=== PATIENT | male | born 1940 | race Caucasian/White ===

== ENCOUNTER 2018-12-17 13:17 | Inpatient (IN) ==
[2018-12-17] MEDS ORDERED: ROBINUL ONE (14:53)
[2018-12-17] MEDS ORDERED: XYLOCAINE-MPF 2% ONE (14:53)
[2018-12-17] MEDS ORDERED: DIPRIVAN 1% ONE (14:54)
[2018-12-17] MEDS ORDERED: LEVAQUIN 500 MG/D5W 500 MG/100 ML IVPB ONE (15:11)
[2018-12-17] MEDS ORDERED: ZOFRAN ONE (15:41)
--- NOTE | 2018-12-17 15:58 | HISTORY AND PHYSICAL ---
HISTORY OF PRESENT ILLNESS: This is a 78-year-old well known to me, a patient of mine for many years, presented with complaints of hematuria, and I think some subjective fever. Dr. Haynes did a cystoscopy. He has got what appears to be emphysematous pyelonephritis with irritation even in the bladder. We are admitting him now for IV antibiotics, and he will need a stent placed. He has a solitary kidney. His creatinine has bumped up. Renal function has deteriorated. PAST MEDICAL HISTORY: 1. Diabetes mellitus, type 2. 2. Long history of stones, staghorn calculus, and nonfunctional kidney for years. Finally had a nephrectomy, really an emergency nephrectomy with a lot of purulent pus and a difficult procedure done by Dr. Niall Haynes 2 years ago, and he has had some complications since that time. 3. He has a history of CVA. 4. History of gout. SURGICAL HISTORY: 1. Status post left nephrectomy. 2. Colon resection and colostomy and reversal in the past. FAMILY HISTORY: Coronary artery disease. SOCIAL HISTORY: Former smoker. No history of alcohol or illicit drugs. ALLERGIES: No known drug allergies. REVIEW OF SYSTEMS: He is getting weaker. His concerned he is not walking around very well. Both knees give him pain and his lower back and hips give him pain from arthritis.HEENT: No change in visual or hearing acuity. He denies any trauma to the head or neck. Neck: No neck pain or cervical adenopathy. Respiratory: No increased work of breathing or dyspnea. Cardiovascular: No chest pain or tachy palpitation. Gastrointestinal: Unremarkable Genitourinary: Unremarkable. Musculoskeletal: No new complaints. Neurologic: No new complaints. CURRENT MEDICATION: He is on allopurinol 300 mg a day, Proscar 5 mg a day, metformin 500 mg b.i.d., Flomax 0.4 mg b.i.d., tramadol 50 mg q.4 h. p.r.n. PHYSICAL EXAMINATION: GENERAL: He is awake and alert and oriented x3. VITAL SIGNS: Temperature 97.8 degrees, pulse 84, respirations 18, blood pressure 128/57, O2 saturation 97%. HEENT: Pupils are equal and round. LUNGS: Clear in all lung lund. CARDIOVASCULAR: Regular rhythm and rate without murmur or S3. ABDOMEN: Soft. SKIN: Warm and dry. MUSCULOSKELETAL: He has some costovertebral angle tenderness on the right side. ASSESSMENT AND PLAN: 1. Emphysematous pyelonephritis. I am going to cover him with broad spectrum antibiotics, including anaerobes, and he has no known drug allergies. I will put him on Zosyn, and I think I will use a combination of Zosyn and Zyvox and ask Dr. Fontenot to help. Consult Dr. Niall Haynes, who is planning on doing a retrograde and a stent placement if he can on the right. 2. Solitary kidney. Creatinine has bumped up, and so hopefully this will improve with some IV fluids and with opening up his right ureter. 3. Diabetes mellitus, type 2. Check pattern sugars. 4. 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 We will continue the allopurinol. 5. Osteoarthritis. Aware. We will check general lab and thyroid and B12 and folate, CBC. cc: Khang Paz MD
[2018-12-17] MEDS ORDERED: FENTANYL ONE (16:04)
[2018-12-17] MEDS ORDERED: DIPRIVAN 1% 500 MG/50 ML BOTTLE ONE (16:39)
[2018-12-17] MEDS: DILAUDID ONE ×2 (16:40→16:50)
[2018-12-17] MEDS ORDERED: HEPARIN ONE ×2 (17:04)
[2018-12-17] MEDS ORDERED: CARBOCAINE PF 2% ONE ×4 (17:04→18:15)
[2018-12-17] MEDS ORDERED: NS 500 ML ONE ×2 (17:05)
--- NOTE | 2018-12-17 17:25 | OPERATIVE NOTE ---
PROCEDURE DATE: 12/17/2018 SURGEON: Cliff Haynes MD. POSTOPERATIVE DIAGNOSIS: Gross hematuria, emphysematous right pyelonephritis and hemorrhagic cystitis with clots in the bladder. POSTOPERATIVE DIAGNOSIS: Gross hematuria, emphysematous right pyelonephritis and hemorrhagic cystitis with clots in the bladder. PROCEDURE PERFORMED: Cystoscopic exam with clot irrigation and attempt to place right double-J stent (greater than 1 hour). ANESTHESIA: General via laryngeal mask. FINDINGS: Cystoscopic exam: Urethra-greater than 21 Bangladeshi, without stricture. Prostate- coapting lateral lobes, elevated bladder neck, length approximately 5 cm. Bladder with multiple clots and pus mixed with blood. The culture that was obtained yesterday is still pending. There were grade 3 trabeculations but the bladder was very difficult to visualize secondary to bleeding. There was no distinct area. It was just a very diffuse ooze from all parts of the bladder. The right ureteral orifice was searched for but never visualized. The patient is status post left nephrectomy so the left UO was never searched for. Multiple attempts were made to place a double- J stent. A 5-Bangladeshi open ureteral catheter and ZIPwire were used to probe the areas. INDICATION FOR PROCEDURE: This 78-year-old male is status post left nephrectomy for xanthogranulomatous pyelonephritis. He had gross hematuria and increasing creatinine level. At cystoscopic exam yesterday, bladder biopsies were obtained and the right ureteral orifice was never really visualized. An attempt at a retrograde pyelogram was performed but the contrast kept coming back. A CT stone search revealed the surgically absent left kidney and right hydroureteronephrosis with gas in the right kidney and ureter consistent with emphysematous pyelonephritis. DESCRIPTION OF PROCEDURE: After informed consent was obtained from the patient and family and him receiving IV antibiotics, he was taken to the main OR cystoscopy room, placed in supine position. General anesthesia via laryngeal mask was achieved. He was then placed in the low lithotomy position and prepped and draped in the usual sterile fashion for cystoscopic exam. A 21-Bangladeshi cystoscope was passed the patient's urethra, prostate, and into the bladder. The clots were irrigated from the bladder. The bladder never completely cleared even with maximum irrigation running and the Jeanmarie tip syringe used to irrigate several liters of fluid. The urine cleared to kaveh in color and the right ureteral orifice was searched for but never found. A 5-Bangladeshi open- ended ureteral catheter with 0.035 ZIPwire was used to probe multiple areas that appeared to be the UO without success. After an hour, it was felt that any further attempts would be futile and he will be taken down to radiology so a right percutaneous nephrostomy tube could be placed. The bladder was left distended. A 22-Bangladeshi, 3-way Vega catheter was passed through the urethra, prostate and in the bladder. The urine was bloody. Continuous bladder irrigation was started and it became examination supervisor in color. 30 mL of sterile water were placed in the Vega's balloon and the Vega was placed on some traction. He tolerated the procedure well and was taken to the recovery room in stable condition. He will go from the recovery room down to Radiology for percutaneous nephrostomy tube placement. cc: MD Khang Page MD
[2018-12-17] MEDS ORDERED: NORCO-7.5 PO PRN (17:55)
[2018-12-17] MEDS ORDERED: ULTRAM PO PRN (17:55)
--- NOTE | 2018-12-17 19:13 | Diag Imaging Result Doc PS360 ---
EXAM: NEPHROSTOGRAM NEW ACCESS HISTORY: r hydronephrosis TECHNIQUE: Three separate films obtained COMPARISON: None. FINDINGS: First film shows contrast filling the right renal pelvis as well as the proximal and mid right ureter. Last two films show a right-sided ureteral stent. There is only a small amount of contrast remaining in the renal pelvis and ureter on the later films. Electronically signed by Antonio Mahmood 12/17/2018 7:10 PM
[2018-12-17 19:37] LABS: HEMATOCRIT 35.9 % (42.0-52.0); HEMOGLOBIN 11.6 g/dL (14.0-18.0); MCHC 32.3 g/dL (33-37); MCV 83.7 FL (81-99); MPV 9.6 FL (7.4-10.4); RBC 4.29 XMIL (4.7-6.1); RDW 14.8 % (11.5-14.5); WBC 14.61 X1000 (4.8-10.8)
[2018-12-17 19:41] LABS: INR 1.04; PROTIME 14.4 Seconds (11.0-16.0)
[2018-12-17 20:11] LABS: ALB/GLOB RATIO 1.2; ALBUMIN 3.5 g/dL (3.5-5.0); CALCIUM 8.5 mg/dL (8.8-10.2); CREATININE 2.5 mg/dL (0.7-1.2); TOTAL BILIRUBIN 0.23 mg/dL (0.20-1.00); TOTAL PROTEIN 6.4 g/dL (6.3-8.3)
[2018-12-17 20:12] LABS: MAGNESIUM 1.9 mg/dL (1.5-2.7)
[2018-12-17] MEDS: NS 1,000 ML IV SCH (20:38)
[2018-12-17] MEDS: ZOSYN 2.25 GM in NS 50 ML IV SCH (22:52)
[2018-12-17] MEDS: FLOMAX PO SCH (22:52)
[2018-12-18] MEDS: ZYVOX 600 MG/D5W 600 MG/300 ML IVPB IV SCH ×3 (00:30→22:08)
[2018-12-18] MEDS: ZOSYN 2.25 GM in NS 50 ML IV SCH ×4 (06:13→22:09)
[2018-12-18] MEDS: NS 1,000 ML IV SCH (09:06)
[2018-12-18] MEDS: PROSCAR PO SCH (09:06)
[2018-12-18] MEDS: ZYLOPRIM PO SCH (09:06)
[2018-12-18] MEDS: FLOMAX PO SCH ×2 (09:07→20:29)
[2018-12-18] MEDS ORDERED: B & O 16A SUPP PR PRN (09:34)
[2018-12-18 10:17] LABS: BASO# 0.02 X1000 (0.0-0.2); BASO% 0.2 % (0.0-0.8); EOS# 0.32 X1000 (0.0-0.7); EOS% 3.2 % (0.0-10.0); HEMATOCRIT 31.8 % (42.0-52.0); HEMOGLOBIN 10.2 g/dL (14.0-18.0); IMM GRAN# 0.06 X1000 (0.0-0.04); IMM GRAN% 0.6 % (0.0-0.5); LYMPH# 0.73 X1000 (1.2-3.4); LYMPH% 7.2 % (20.5-51.1); MCHC 32.1 g/dL (33-37); MCV 84.1 FL (81-99); MONO% 7.9 % (1.7-9.3); MPV 9.3 FL (7.4-10.4); NEUT# 8.22 X1000 (1.4-6.5); NEUT% 80.9 % (42.2-75.2); PLT 282 X1000 (130-400); RBC 3.78 XMIL (4.7-6.1); RDW 14.8 % (11.5-14.5); WBC 10.15 X1000 (4.8-10.8)
[2018-12-18] MEDS: ZOFRAN IV PRN (13:15)
[2018-12-18] MEDS: TYLENOL PO PRN (13:15)
[2018-12-18] MEDS: PERIDEX MT SCH (20:29)
[2018-12-19] MEDS: NS 1,000 ML IV SCH ×2 (01:01→17:11)
[2018-12-19] MEDS: ZOFRAN IV PRN (01:01)
[2018-12-19] MEDS: ZOSYN 2.25 GM in NS 50 ML IV SCH ×5 (04:20→22:39)
[2018-12-19 06:43] LABS: BASO# 0.02 X1000 (0.0-0.2); BASO% 0.2 % (0.0-0.8); EOS# 0.25 X1000 (0.0-0.7); EOS% 2.7 % (0.0-10.0); HEMATOCRIT 30.4 % (42.0-52.0); HEMOGLOBIN 9.8 g/dL (14.0-18.0); IMM GRAN# 0.08 X1000 (0.0-0.04); IMM GRAN% 0.9 % (0.0-0.5); LYMPH# 0.79 X1000 (1.2-3.4); LYMPH% 8.7 % (20.5-51.1); MCH 27.1 PG (27-31); MCHC 32.2 g/dL (33-37); MONO# 0.91 X1000 (0.11-0.59); MPV 9.5 FL (7.4-10.4); NEUT# 7.08 X1000 (1.4-6.5); NEUT% 77.5 % (42.2-75.2); PLT 266 X1000 (130-400); RBC 3.62 XMIL (4.7-6.1); RDW 14.9 % (11.5-14.5); WBC 9.13 X1000 (4.8-10.8)
[2018-12-19 07:02] LABS: CALCIUM 7.9 mg/dL (8.8-10.2); CREATININE 1.8 mg/dL (0.7-1.2); POTASSIUM 4.4 mmol/L (3.5-5.1)
--- NOTE | 2018-12-19 08:01 | PROGRESS NOTE ---
DATE: 12/18/2018 SUBJECTIVE: Mr. Hodges was admitted with emphysematous, pyelonephritis of his lung, kidney, and admitted. Dr. Haynes did a cystoscopic exam with clot irrigation and attempt to place a right double-J stent. He had a clots irrigated from the bladder. The bladder was completely cleared. We were unable to find the right ureteral orifice so was sent down for a percutaneous nephrostomy tube, which was placed. The patient is getting bladder irrigation. Joseph afebrile. OBJECTIVE: Temperature 98.9 degrees, pulse 79, respirations 16, blood pressure 132/56. Pupils are equal and round. Lungs are clear in all lung lund. Cardiovascular Examination: Regular rhythm and rate without murmur or S3. His urine output was well, with irrigation, reported about 18,000 mL. ASSESSMENT AND PLAN: 1. Right pyelonephritis. Continue present antibiotics, as a percutaneous nephrostomy tube and continue to irrigate the bladder. He is on Zosyn 2.25 g intravenous every 6 hours and linezolid 600 intravenous every 12 hours. 2. Benign prostatic hypertrophy. Continue his Proscar and his Flomax. Flomax is at high-dose 0.4 mg twice a day. 3. Diabetes mellitus. Continue to follow pattern of sugars. 4. Low-grade anemia. Hematocrit is 30, hemoglobin 9.8. 5. Creatinine 1.8. Hyponatremia. Sodium is 128, potassium 4.4, chloride 100. His sodium has dropped since he has been here. I think that is partly from the intravenous fluids and irrigation. The creatinine has come down from 2.5 to 1.8 which is encouraging. His fluids, getting normal saline at 100 mL an hour. We will continue that. cc: Khang Paz MD
--- NOTE | 2018-12-19 08:03 | PROGRESS NOTE ---
DATE: 12/19/2018 SUBJECTIVE: Mr. Hodges was sleeping, easy to arouse. Still getting bladder irrigation. His was sleeping at the bedside T. OBJECTIVE: T-max looks like it was 100, pulse 88, respirations 18, blood pressure 153/54. Pupils are equal and round. Lungs are clear in all lung lund. Cardiovascular Examination: Regular rhythm and rate without murmur or S3. Abdomen is soft. Skin is warm and dry. Urine output 15,000 recorded but this is with bladder irrigation. ASSESSMENT AND PLAN: 1. Evacuation of clots from the bladder. A percutaneous nephrostomy tube placed for emphysematous pyelonephritis. Continue current antibiotics. He is on Zosyn 2.25 g intravenous every 6 hour and linezolid 600 mg intravenous every 12 hours. I do not have any culture studies from the urine. 2. Diabetes mellitus type 2. Continue to check pattern sugars, sliding scale. 3. Benign prostatic hypertrophy. 4. Hyponatremia. Continue current fluids, normal saline at 100 mL an hour. Creatinine has come down to 1.8. On admission, it was 2.5. It appears were are making progress. cc: Khang Paz MD
[2018-12-19] MEDS: PERIDEX MT SCH ×2 (09:24→21:46)
[2018-12-19] MEDS: ZYLOPRIM PO SCH (09:24)
[2018-12-19] MEDS: PROSCAR PO SCH (09:24)
[2018-12-19] MEDS: FLOMAX PO SCH ×2 (09:24→21:46)
--- NOTE | 2018-12-19 10:24 | INFECTIOUS DISEASE CONSULT REP ---
DATE: 12/19/2018 CONCLUSION: The patient, based on CT scan, has been given the diagnosis of cystitis and emphysematous pyelitis. Two separate urine cultures, however, are negative. RECOMMENDATIONS: The patient seems to be improving on Zosyn and Zyvox and also radiology was able to place a ureteral stent. I think it would be reasonable to continue the current antibiotics because, as mentioned above, the patient is doing better. DISCUSSION: The patient, for approximately 3 weeks, has had purulent urine and urinary frequency. He also had anorexia. He has had a fever up to 101 degrees. His CBC shows a white count of 9130, hemoglobin 9.8, and platelet count 266,000. Creatinine is 1.8. GFR is 37. As mentioned above, patient had two negative urine cultures. The patient, on renal CT scan, was diagnosed as having cystitis and emphysematous pyelitis. REVIEW OF SYSTEMS: Head, Eyes, Ears, Nose, and Throat: The patient denied having any trouble hearing or seeing. He has not had any headaches either. Neck: He did not complain of any neck stiffness. Respiratory: No cough or shortness of breath. Cardiac: No chest pain or palpitations. : See present illness. GI: The patient did have anorexia with his most recent illness. Before that, he was eating okay. He does not have diarrhea. Neurologic: No seizures. He does have some generalized weakness but no recent loss of motor or sensory function. MEDICAL DISEASES: Positive for diabetes mellitus and a staghorn calculus in the left kidney which caused the kidney to be nonfunctioning. The patient also has a history of a stroke and gout. PAST SURGICAL HISTORY: Positive for a left nephrectomy and a partial colon resection and placement of a colostomy due to some opening on the colon. FAMILY HISTORY: Positive for coronary artery disease, stroke, cancer. SOCIAL HISTORY: The patient previously smoked but he does not now. He does not have any history of alcoholism or use of illicit drugs. ALLERGIES: The patient has no known allergies. HOME MEDICATIONS: Include allopurinol, Proscar, Glucophage, Flomax, and Ultram. REVIEW OF SYSTEMS: Head, PHYSICAL EXAMINATION: Vital Signs: Temperature maximum was 101 and now it is 97.5, with a pulse of 84, respirations 18, blood pressure is 136/57, the patient weighs 212 pounds. General: This is an ill-appearing, elderly male. He is in no acute distress. Head, Eyes, Ears, Nose, and Throat: No drainage was noted from the nose or the ears. He does not have any white patches on his tongue. Neck: There was no neck pain when the patient moved his head. Lungs: Clear to auscultation. Cardiovascular: Heart rate was irregular. On EKG, the patient has a sinus arrhythmia. Abdomen: Soft and nontender. The patient had an attempt of a right nephrostomy. The site is not draining, erythematous, or tender. Neurologic: The patient is awake. He can move his extremities. His sensation is intact to touch. His memory as regarding his medical history is decreased. Integument: No rash noted. Thank you for the consult. cc: MD Khang Roberts MD MTDD
[2018-12-19] MEDS: ZYVOX 600 MG/D5W 600 MG/300 ML IVPB IV SCH ×2 (11:35→22:37)
[2018-12-20] MEDS: ZOSYN 2.25 GM in NS 50 ML IV SCH ×2 (04:17→13:00)
--- NOTE | 2018-12-20 09:37 | Diag Imaging Result Doc PS360 ---
FLUROSCOPY CYSTO - 12/17/2018 INDICATION: ATTEMPTED R SIDE STENT PLACEMENT TECHNIQUE: The exam was performed by the patient's urologist. 40 images were obtained. COMPARISON: 12/16/2018 FINDINGS: A scope was placed in the urinary bladder. There is attempt to place a wire in the right ureter. However apparently the attempt was unsuccessful. IMPRESSION: Unsuccessful. Electronically signed by Pete Andino 12/20/2018 9:35 AM
[2018-12-20] MEDS: FLOMAX PO SCH ×2 (09:43→22:02)
[2018-12-20] MEDS: NS 1,000 ML IV SCH ×2 (09:43→22:00)
[2018-12-20] MEDS: PERIDEX MT SCH ×2 (09:43→22:01)
[2018-12-20] MEDS: ZYLOPRIM PO SCH (09:43)
[2018-12-20] MEDS: PROSCAR PO SCH (09:43)
--- NOTE | 2018-12-20 10:20 | PROGRESS NOTE ---
DATE: 12/20/2018 SUBJECTIVE: Mr. Hodges is feeling better. Still getting bladder irrigation. OBJECTIVE: Vital Signs: Temperature 97.8 degrees, pulse 67, respirations 24, and blood pressure 127/47. HEENT: Pupils are equal. Lungs: Clear in all lung lund. Cardiovascular: Regular rate without murmur or S3. LABORATORY DATA: Blood sugars 132, 196, 143. ASSESSMENT AND PLAN: 1. The patient has a diagnosis of cystitis and emphysematous pyelitis on 2 separate blood cultures. Urine cultures were negative. Improving on Zosyn and Zyvox. Continue. Able to place ureteral stent, percutaneous nephrostomy. Urine seems to be clearing. 2. Diabetes mellitus type 2. Blood sugars appear well controlled. 3. Benign prostatic hypertrophy. 4. Presented with hyponatremia, and sodium was 128, creatinine 1.8 on the 7th. We will repeat electrolytes again tomorrow. REVIEW OF HIS ORDERS: I do not see any change. cc: Khang Paz MD
[2018-12-20] MEDS ORDERED: GOLYTELY PO ONE (14:00)
[2018-12-20] MEDS ORDERED: ZOSYN 3.375 GM in NS 50 ML IV SCH (14:30)
--- NOTE | 2018-12-20 16:50 | INFECTIOUS DISEASE PROGRESS NO ---
DATE: 12/20/2018 PRESENT ILLNESS: The patient has been diagnosed as having cystitis and emphysematous pyelitis. Both clinically and on laboratories findings, he is getting better. MEDICATIONS: The patient is on a combination of Zosyn and Zyvox. PHYSICAL EXAMINATION: Vital Signs: Temperature is 98 degrees, pulse 89, respirations 18, blood pressure is 127/43. General: This is a somewhat ill-appearing elderly male. He is in no acute distress. Head, eyes, ears, nose, and throat: He can hear my spoken words and see near objects. He does not have any white patches on his tongue. Neck: No meningismus. Lungs: Clear to auscultation. Cardiovascular: Heart rate is regular. Abdomen: Abdomen and patient's flanks are soft and nontender. Neurologic: Patient is alert. He can move his extremities. There is no tremor. LAB AND X-RAY: The patient's creatinine is down to 1.8. GFR is up to 37. CBC shows a white count of 9130, hemoglobin 9.8, and platelet count 266,000. There is no new radiographic study for today. ASSESSMENT AND PLAN: The patient has been diagnosed as having emphysematous pyelitis and cystitis. I have discontinued Zyvox and I have increased Zosyn to 3.375 g IV every 6 hours. COMORBIDITIES: He is elderly. He also has had prior kidney problem which resulted in the patient having a left nephrectomy. He had a staghorn calculus in his kidney that was removed. cc: MD Khang Roberts MD MTDLinda
[2018-12-20] MEDS: ZOSYN 3.375 GM in NS 50 ML IV SCH (22:26)
[2018-12-21] MEDS: ZOSYN 3.375 GM in NS 50 ML IV SCH ×4 (04:00→22:21)
[2018-12-21 06:25] LABS: BASO# 0.02 X1000 (0.0-0.2); BASO% 0.3 % (0.0-0.8); EOS# 0.46 X1000 (0.0-0.7); EOS% 5.9 % (0.0-10.0); HEMOGLOBIN 9.5 g/dL (14.0-18.0); IMM GRAN# 0.07 X1000 (0.0-0.04); IMM GRAN% 0.9 % (0.0-0.5); LYMPH% 14.1 % (20.5-51.1); MCH 26.5 PG (27-31); MCHC 31.7 g/dL (33-37); MCV 83.8 FL (81-99); MONO# 0.89 X1000 (0.11-0.59); MONO% 11.4 % (1.7-9.3); MPV 9.4 FL (7.4-10.4); NEUT# 5.24 X1000 (1.4-6.5); NEUT% 67.4 % (42.2-75.2); PLT 259 X1000 (130-400); RBC 3.58 XMIL (4.7-6.1); RDW 14.8 % (11.5-14.5); WBC 7.78 X1000 (4.8-10.8)
[2018-12-21 06:59] LABS: CALCIUM 7.9 mg/dL (8.8-10.2); CREATININE 1.4 mg/dL (0.7-1.2); MAGNESIUM 1.6 mg/dL (1.5-2.7)
[2018-12-21] MEDS ORDERED: DIPRIVAN 1% ONE (07:49)
[2018-12-21] MEDS ORDERED: XYLOCAINE-MPF 2% ONE (07:50)
[2018-12-21] MEDS: PERIDEX MT SCH ×2 (09:12→22:21)
[2018-12-21] MEDS: PROSCAR PO SCH (09:12)
[2018-12-21] MEDS: ZYLOPRIM PO SCH (09:12)
[2018-12-21] MEDS: FLOMAX PO SCH ×2 (09:12→22:21)
--- NOTE | 2018-12-21 09:12 | PROGRESS NOTE ---
DATE: 12/21/2018 SUBJECTIVE: Had a pretty uneventful night. Still concerned about the urine, which seems to be cloudy, and concerned there could be something going on in the colon. OBJECTIVE: Vital Signs: Temperature 98.3 degrees, pulse 53, respirations 16, blood pressure 139/48. Eyes: Pupils are equal and round. Lungs: Clear in all lung lund. Cardiovascular exam: Regular rhythm and rate without murmur or S3. Abdomen: Soft. Skin: Warm and dry. : Urine output is 4200 mL. ASSESSMENT AND PLAN: 1. He has cystitis emphysematous pyelitis. Check the colon to see if there is any intra- abdominal infection or fistula. He is on Zosyn and Zyvox. 2. Diabetes mellitus type 2. Continue to follow sugars. 3. Benign prostatic hypertrophy. 4. Some hyponatremia. LABORATORY DATA: From this morning, white count 7780, hematocrit is 30, platelet count is 259,000. So, his white count has come down. Sodium 134, potassium 4.0, chloride 104. BUN 9, creatinine 1.4. Blood sugars 181, 153, 131, and 129, so good control there. Going to continue present orders. cc: Khang Paz MD
[2018-12-21] MEDS: NS 1,000 ML IV SCH ×3 (11:02→22:20)
--- NOTE | 2018-12-21 16:03 | INFECTIOUS DISEASE PROGRESS NO ---
DATE: 12/21/2018 HISTORY OF PRESENT ILLNESS: Mr. Hodges is status post cystoscopy with right double-J stent placement for emphysematous right pyelonephritis and hemorrhagic cystitis. MEDICATIONS: He is receiving Zosyn 3.375 g IV every 6 hours. OBJECTIVE: Vital signs: Temperature is 98.3, pulse rate 55, respiratory rate 14, blood pressure 139/48, O2 saturation is 97% on room air. General: This is an elderly, chronically ill-appearing gentleman. He is lying in the bed, currently in no acute distress. HEENT: Atraumatic and normocephalic. Oral mucous membranes are pink and moist. Conjunctivae are pale. Neck: Supple. Trachea is midline. Cardiovascular: Heart rate is regular and slow. Respiratory: Lung sounds are clear to auscultation bilaterally. Abdomen: Soft, round and nontender. Bowel sounds are active. Neurologic: He is awake, alert, oriented and able to move his extremities in the bed, with generalized weakness noted. DIAGNOSTIC DATA: Today his white count is 7.78, hemoglobin 9.5, platelet count 259,000. Creatinine 1.4, GFR is 49. No imaging reports today. ASSESSMENT AND PLAN: Mr. Hodges is being treated for emphysematous pyelonephritis and cystitis using Zosyn as a single agent. His creatinine and GFR are continuing to improve. He states he is feeling good today. He has been afebrile with a normal white count. We will continue Zosyn at this time. These plans have been discussed with and recommended by Dr. Fontenot. COMORBIDITIES: He is elderly, with a solitary kidney, diabetes mellitus, and history of CVA. Dictated by STEVEN Fuchs for Siva Fontenot MD cc: MD Khang Roberts MD [facility]
--- NOTE | 2018-12-21 17:22 | OPERATIVE NOTE ---
PROCEDURE DATE: 12/21/2018 PREOPERATIVE DIAGNOSIS: Acute and chronic pyelonephritis with polyuria from the right kidney. PROCEDURE: Flexible sigmoidoscopy. INDICATION: The patient has a history of a left nephrectomy in 2017 secondary to acute pyelonephritis. He had developed postoperative left flank abscess that was treated with percutaneous drainage. Subsequent to the percutaneous drainage, there was detected an injury to his descending colon. Laparotomy decompressed the large abscess as well as unroofing a small perforation in the posterior descending colon. End-colostomy and Theresa's pouch was performed in June 2017 with subsequent colostomy closure with a [id number] anastomosis in October 2017. He has done relatively well since that time until the recent development of the infection in his right kidney. We are doing everything we can to preserve the right kidney; otherwise, the patient will end up on dialysis. DETAILS OF PROCEDURE: He was brought to the GI lab after satisfactory IV sedation with propofol and anesthesia standby. Rectal exam revealed no masses. Colonoscope was introduced without difficulty. Rectum was otherwise normal. There was scattered diverticulosis in the descending colon. The [id number] anastomosis was widely patent. It was somewhat difficult to traverse, but it was. The scope was introduced up to about the hepatic flexure area. The main reason was just to see if there was any pathology involving the colon. There appeared to be none. For this reason the procedure was terminated and the scope was gradually removed. The patient tolerated the procedure well. He will continue to have aggressive therapy for the right-sided kidney and bladder infection. cc: MD Khang Mosquera MD
[2018-12-22] MEDS: ZOSYN 3.375 GM in NS 50 ML IV SCH ×4 (04:46→21:35)
[2018-12-22] MEDS: PROSCAR PO SCH (09:45)
[2018-12-22] MEDS: FLOMAX PO SCH ×2 (09:45→21:35)
[2018-12-22] MEDS: PERIDEX MT SCH ×2 (09:45→21:35)
[2018-12-22] MEDS: ZYLOPRIM PO SCH (09:45)
[2018-12-22] MEDS: NS 1,000 ML IV SCH ×3 (09:49→21:35)
--- NOTE | 2018-12-22 13:16 | Diag Imaging Result Doc PS360 ---
EXAM: CT CYSTOGRAM (PELVIS W/CON) 12/22/2018 HISTORY: R/O obstruction TECHNIQUE: CT cystogram COMMENT: Diluted water-soluble iodinated contrast was instilled into the urinary bladder via the indwelling Vega catheter. There is thickening and some apparent trabeculation of the bladder. The prostate is enlarged measuring up to 6.9 cm in anterior posterior dimension. Reflux into the stent and ureter is seen on the right into the collecting system via the stent which was previously placed. No evidence of fistula formation elsewhere in the pelvis is present. The aorta and superior mesenteric artery are calcified. There are postsurgical changes of nephrectomy on the left. There has also been some small bowel and surgical change. There are degenerative disc changes in the lumbar spine. IMPRESSION: Cystitis and prostatic enlargement. Electronically signed by Woodrow Fong 12/22/2018 1:14 PM
--- NOTE | 2018-12-22 14:17 | INFECTIOUS DISEASE PROGRESS NO ---
DATE: 12/22/2018 PRESENT ILLNESS: Mr. Hodges is being treated for right-sided emphysematous pyelonephritis and hemorrhagic cystitis. He has had a double-J stent placement on the right. MEDICATIONS: He is receiving Zosyn 3.375 g IV every 6 hours as a single agent. PHYSICAL EXAMINATION: Vital Signs: Temperature is 98.5 degrees, pulse rate 66, respiratory rate 14, blood pressure 141/47, O2 saturation is 95% on room air. General: This is an elderly, chronically ill-appearing gentleman, lying in the bed currently in no acute distress. HEENT: Atraumatic, normocephalic. Oral mucous membranes are pink and moist. Conjunctivae are pale. Neck: Supple. Trachea is midline. Respiratory: Lung sounds are clear to auscultation bilaterally. Cardiovascular: Heart rate is regular. Abdomen: Soft, round and nontender. Bowel sounds are active. Neurologic: He is awake, alert and oriented; and moving around in the bed independently. LABORATORY AND X-RAY: No labs available today. CT of the pelvis showed cystitis and prostatic enlargement. ASSESSMENT AND PLAN: Mr. Hodges has right-sided emphysematous pyelonephritis and cystitis. No blood work today, so we will order some for tomorrow. He has been afebrile and states he is feeling well today. For now, we will continue the Zosyn as ordered and recheck labs in the morning. Prescriptions have been placed on the patient's chart for when he is ready to be discharged. Those are Cipro 500mg p.o. every 12 hours and Augmentin 875mg p.o. every 12 hours, both for 14 days. We will also see him in our office in 2 weeks. These plans have been discussed with and recommended by Dr. Fontenot. COMORBIDITIES: Comorbidities for Mr. Hodges include that he is elderly with a history of left nephrectomy, diabetes mellitus and history of CVA. Dictated by STEVEN Fuchs for Siva Fontenot MD cc: MD Khang Roberts MD MTDD
[2018-12-23] MEDS: ZOSYN 3.375 GM in NS 50 ML IV SCH ×4 (04:40→21:13)
[2018-12-23 06:37] LABS: BASO# 0.03 X1000 (0.0-0.2); BASO% 0.4 % (0.0-0.8); EOS# 0.47 X1000 (0.0-0.7); EOS% 6.2 % (0.0-10.0); HEMATOCRIT 31.1 % (42.0-52.0); IMM GRAN# 0.07 X1000 (0.0-0.04); IMM GRAN% 0.9 % (0.0-0.5); LYMPH# 1.23 X1000 (1.2-3.4); LYMPH% 16.2 % (20.5-51.1); MCH 26.8 PG (27-31); MCHC 32.2 g/dL (33-37); MCV 83.4 FL (81-99); MONO# 0.77 X1000 (0.11-0.59); MONO% 10.1 % (1.7-9.3); MPV 9.6 FL (7.4-10.4); NEUT# 5.03 X1000 (1.4-6.5); NEUT% 66.2 % (42.2-75.2); PLT 253 X1000 (130-400); RBC 3.73 XMIL (4.7-6.1); RDW 14.9 % (11.5-14.5)
[2018-12-23 07:10] LABS: ALB/GLOB RATIO 0.8; ALBUMIN 2.7 g/dL (3.5-5.0); CALCIUM 7.9 mg/dL (8.8-10.2); CREATININE 1.5 mg/dL (0.7-1.2); POTASSIUM 3.3 mmol/L (3.5-5.1); TOTAL BILIRUBIN 0.29 mg/dL (0.20-1.00); TOTAL PROTEIN 5.9 g/dL (6.3-8.3)
--- NOTE | 2018-12-23 09:42 | PROGRESS NOTE ---
DATE: 12/22/2018 SUBJECTIVE: He was feeling better. He is very weak. He remains afebrile. OBJECTIVE: Temperature is 97.4 degrees, pulse 62, respirations 20, blood pressure 142/54. Pupils are equal. Lungs are clear in all lung lund. Cardiovascular Examination: Regular rhythm and rate without murmur or S3. Abdomen is soft. Skin is warm and dry. Urine output is 5500 mL. ASSESSMENT AND PLAN: 1. 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 Had a double-J stent placed in the right. We have never had any culture data to show us what organism. Plan on doing a cystogram. Continue the Zosyn 3.375 g intravenous every 6 hours, single agent. He seems to be improving. 2. Diabetes mellitus type 2. Sugar is under good control. 3. Benign prostatic hypertrophy. 4. Hyponatremia. That has resolved. Sodium is coming up. We will check electrolytes again in the morning. I plan on cystogram today. cc: Khang Paz MD
--- NOTE | 2018-12-23 09:56 | PROGRESS NOTE ---
DATE: 12/23/2018 SUBJECTIVE: He feels much better. He is very weak, so we need to get physical therapy if he is able to ambulate. I think the plan is to put him on p.o. antibiotic for a couple weeks, and so probably suspect will use quinolone and Augmentin. Cystogram was performed and he had diluted water-soluble iodinated contrast instilled in the urinary bladder with Vega catheter. There was thickened and some apparent trabeculation of the bladder. Prostate is enlarged up to 6.9 cm in anterior-posterior dimension. Reflux in the stent ureters seen in the right into the collection system via the stent which is previously placed. No evidence of fistula formation in the pelvis. The aorta and superior mesenteric artery are calcified. There are postsurgical changes with nephrectomy from the left, and also some small bowel surgical changes seen. Degenerative disk disease in the lumbar spine appreciated. ASSESSMENT AND PLAN: 1. Cystitis emphysematous pyelitis. Continue Zosyn. Plan is to probably change him over to oral antibiotics. We do not have cultures that have identified a specific organism. I have discussed with Dr. Fontenot. 2. Diabetes mellitus type 2. Sugars under good control. 3. Benign prostatic hypertrophy. 4. Hyponatremia, which is resolved. Sodium is back up to 140. 5. General weakness/deconditioning. Will get physical therapy to work with him in hopes that he can go home soon, maybe even this afternoon. He will resume home health. cc: Khang Paz MD
[2018-12-23] MEDS: PROSCAR PO SCH (11:09)
[2018-12-23] MEDS: ZYLOPRIM PO SCH (11:10)
[2018-12-23] MEDS: FLOMAX PO SCH ×2 (11:10→21:14)
[2018-12-23] MEDS: PERIDEX MT SCH ×2 (11:10→21:14)
[2018-12-23] MEDS: NS 1,000 ML IV SCH ×3 (12:43→18:03)
[2018-12-24] MEDS: NS 1,000 ML IV SCH (03:55)
[2018-12-24] MEDS: TYLENOL PO PRN (03:55)
[2018-12-24] MEDS: ZOSYN 3.375 GM in NS 50 ML IV SCH (03:55)
[2018-12-24 05:53] VITALS: BP 152/53
--- NOTE | 2018-12-24 11:20 | DISCHARGE SUMMARY ---
ADMISSION DATE: 12/17/2018 DISCHARGE DATE: 12/24/2018 This is a patient who is a longstanding patient of mine 78 years old [address] by Dr[address] Niall Haynes. He was complaining of hematuria and subjective fever and just general malaise. Dr. Haynes did a cystoscopy, appeared to have emphysematous pyelonephritis, irritation extending into the bladder. PAST MEDICAL HISTORY: 1. Diabetes mellitus type 2. 2. 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 3. History of CVA. 4. History of gout. So admitted with emphysematous pyelonephritis. We put him on broad-spectrum antibiotics. Dr. Siva Fontenot was followed as well from Infectious Disease. He has a solitary kidney. He had some gross hematuria, so we set him up for irrigation. He had a nephrostogram on 12/17/2018 and there was successful placement of antegrade ureteral stent, per Dr. Garza, nephrostomy tube. He had a cystoscopic exam with clot irrigation and attempt to place a double-J stent, which was unsuccessful, could not find the ureter opening. He was placed on Zosyn and Zyvox and continued those antibiotics. He seemed to show improvement as far as his infection. The bladder was irrigated and there was concern that possibly there was a fistula or some infection in the bowel. Dr. Jeanmarie Messer was consulted. He was brought to the GI lab and had a colonoscopy, it did not find any infection, colon looked normal. The patient continued to show steady improvement. He began physical therapy. He was eating well and we did do a CT cystogram. He had cystitis and prostate enlargement. Plan is to keep for a couple more weeks on a combination of Augmentin and Cipro and discharge him on 12/24/2018. He will go home with the catheter and follow up with Dr. Niall Haynes in about a week. He will be on allopurinol 300 mg a day. He takes B and O suppositories as needed for bladder spasm, Proscar 5 mg a day. He has [place] 7.5 q.4 hours p.r.n. pain, Flomax 0.4 mg a day, and his Augmentin and Cipro. We will get things ready for discharge this afternoon. Will discuss with Dr. Haynes to make sure he is okay with all that. I will put him back on his metformin 500 mg b.i.d. and I think he had Tramadol p.r.n. pain as well. cc: Khang Paz MD
[2018-12-24] MEDS: PERIDEX MT SCH (11:56)
[2018-12-24] MEDS: ZYLOPRIM PO SCH (11:56)
[2018-12-24] MEDS: PROSCAR PO SCH (11:56)
[2018-12-24] MEDS: FLOMAX PO SCH (11:56)
== END 2018-12-24 12:42 | disposition home health service (06) | DRG 690 ==
LOC: DIRADM 13:17 → 4N 13:25 → EDSTATUS 15:00
PROVIDERS: ADMIT Emergency Medicine; ATTEND Emergency Medicine
CPT/HCPCS: 50430; 72193; 76000; 80048; 80053; 82948; 83735; 85025; 85027; 85610; 94761; 94799; 97110; 97162; 97165; 97530; 97535; A9270; C2617; J0670; J1170; J1644; J1956; J2020; J2405; J2543; J3010; J7030; J7040; Q9966; Q9967; S0138; XXXXX

== ENCOUNTER 2019-01-06 09:27 | Inpatient (IN) ==
[2019-01-06 10:35] LABS: URINE SOURCE CATH
[2019-01-06 10:41] LABS: BILIRUBIN URINE NEGATIVE (NEGATIVE); BLOOD URINE MODERATE (NEGATIVE); COLOR ORANGE; GLUCOSE URINE TRACE mg/dL (NEGATIVE); KETONE URINE TRACE mg/dL (NEGATIVE); LEUKOCYTES URINE LARGE (NEGATIVE); NITRITE URINE NEGATIVE (NEGATIVE); PH URINE 6.5; PROTEIN URINE 300 mg/dL (NEGATIVE); SP GRAVITY URINE 1.014; TURBIDITY URINE TURBID (CLEAR); UROBILINOGEN URINE NORMAL (NORMAL)
[2019-01-06] MEDS ORDERED: SALINE LOCK IV FLUID XX ONE (10:41)
[2019-01-06 10:45] LABS: URINE BACTERIA NEGATIVE /HPF; URINE RBC 20-40 /HPF (<10)
[2019-01-06 10:53] LABS: UR EPITHELIAL CELLS <10 /HPF (<10); URINE CASTS NONE SEEN; URINE CRYSTALS NONE SEEN; URINE SMALL ROUND CELLS NONE SEEN; URINE YEAST NONE SEEN
[2019-01-06 10:54] LABS: URINE WBC TNTC /HPF (<10)
[2019-01-06 11:49] LABS: BASO# 0.04 X1000 (0.0-0.2); BASO% 0.3 % (0.0-0.8); EOS# 0.32 X1000 (0.0-0.7); EOS% 2.5 % (0.0-10.0); HEMATOCRIT 36.6 % (42.0-52.0); HEMOGLOBIN 11.8 g/dL (14.0-18.0); IMM GRAN# 0.05 X1000 (0.0-0.04); IMM GRAN% 0.4 % (0.0-0.5); LYMPH# 0.97 X1000 (1.2-3.4); LYMPH% 7.6 % (20.5-51.1); MCH 26.6 PG (27-31); MCHC 32.2 g/dL (33-37); MCV 82.4 FL (81-99); MONO% 6.3 % (1.7-9.3); MPV 10.2 FL (7.4-10.4); NEUT# 10.54 X1000 (1.4-6.5); NEUT% 82.9 % (42.2-75.2); PLT 338 X1000 (130-400); RBC 4.44 XMIL (4.7-6.1); RDW 15.2 % (11.5-14.5); WBC 12.72 X1000 (4.8-10.8)
[2019-01-06] MEDS: ZYVOX 600 MG/D5W 600 MG/300 ML IVPB IV SCH (11:51)
[2019-01-06 12:06] LABS: ALB/GLOB RATIO 0.9; ALBUMIN 3.6 g/dL (3.5-5.0); C REACTIVE PROT QUANT 40.8 mg/L (0.00-5.00); CALCIUM 9.7 mg/dL (8.8-10.2); POTASSIUM 4.8 mmol/L (3.5-5.1); TOTAL BILIRUBIN 0.74 mg/dL (0.20-1.00); TOTAL PROTEIN 7.5 g/dL (6.3-8.3)
--- NOTE | 2019-01-06 12:07 | HISTORY AND PHYSICAL ---
HISTORY OF PRESENT ILLNESS: Patient is a 78-year-old white male patient of mine for many years, over 20 years. He has a history of staghorn calculus. He had a nonfunctional left kidney for years. I recommended he get it taken out but he resisted that. We finally were forced to take it out with a lot of infection and the left kidney full of infection, difficult surgery. Dr. Niall Haynes did a left nephrectomy. We have had some trouble lately with, I believe on the right side, we have not been able to identify the infection, but he is draining milky urine and appears to have more infection in the right kidney which is sole kidney. We had him in the hospital a couple weeks ago and we treated him for unknown infection. We did not ever get a positive ID, but he was on Cipro and I think Augmentin. He has complained of some right-sided discomfort but really not much pain, just noting he does not feel good and his urine is very thick and appears infected. PAST MEDICAL HISTORY: 1. Diabetes mellitus type 2. 2. History of CVA. 3. History of gout. 4. Osteoarthritis, in particular both knees. 5. As above, a history of staghorn calculus and kidney stones, status post left nephrectomy. SURGICAL HISTORY: 1. Status post left nephrectomy. 2. Colon resection and colostomy with reversal. FAMILY HISTORY: Coronary artery disease. SOCIAL HISTORY: Former smoker. No history of alcohol or illicit drugs. ALLERGIES: No known drug allergies. REVIEW OF SYSTEMS: General: He is not eating good, not much appetite. He feels like he has had subjective fever. HEENT: He has not had any change in visual or hearing acuity. Respiratory: No increased work of breathing or dyspnea. Cardiovascular: No chest pain or tachy palpitation. Gastrointestinal/genitourinary: As noted above. He has not had much complaints with bowels. He is not eating much. Does not feel constipated. Endocrinologic/hematologic: No significant history. Musculoskeletal/neurologic: Just generally feels weak. He has bilateral knee arthritis which limits his mobility. PHYSICAL EXAMINATION: VITAL SIGNS: Temperature 97.5 degrees, pulse 86, respirations 20, blood pressure 119/65. His weight is 194 pounds, height 6 feet 1 inch. HEENT: Pupils are equal and round. LUNGS: Clear in all lung lund. CARDIOVASCULAR: Regular rhythm and rate without murmur or S3. ABDOMEN: Soft. SKIN: Warm and dry. BACK: I do not appreciate much costovertebral angle tenderness, right or left. NECK: Supple. LYMPH NODES: No cervical, axillary, or femoral adenopathy. LABORATORY DATA: Too numerous to count white blood cells, 20 to 40 red blood cells. No yeast seen. ASSESSMENT AND PLAN: 1. Suspect pyelonephritis. Suspect infection. We will try and re-culture. Ask Dr. Niall Haynes to help with trying to figure out what is going on. Dr. Siva Fontenot, Infectious Disease, select what antibiotics to try and put him on. He has been on, I believe, Augmentin and Cipro at home. 2. Diabetes mellitus type 2. We will follow pattern sugars and put him on a diabetic diet. We will check some labs, check his hemoglobin A1c. 3. History of osteoarthritis. cc: Khang Paz MD
[2019-01-06 12:10] LABS: HEMOGLOBIN A1C 7.5 % (4.8-6.0)
[2019-01-06 12:44] LABS: FREE T4 1.4 ng/dL (0.93-1.70); TSH 0.58 uIUmL (0.27-4.20)
[2019-01-06] MEDS: MAXIPIME 1 GM in NS 50 ML IV SCH (13:51)
--- NOTE | 2019-01-06 14:27 | Diag Imaging Result Doc PS360 ---
EXAM: CHEST-PORTABLE INDICATION: pneumonia TECHNIQUE: One view COMPARISON: 07/10/2017 FINDINGS: There is evidence of prior granulomatous disease, stable. The lungs are grossly clear. There is no discrete pleural fluid collection or pneumothorax. The cardiomediastinal silhouette and central vasculature are grossly unremarkable. IMPRESSION: No evidence of acute pathology by plain radiograph. Electronically signed by Russ Garza 01/06/2019 2:24 PM
--- NOTE | 2019-01-06 14:49 | INFECTIOUS DISEASE PROGRESS NO ---
DATE: 01/06/2019 PRESENT ILLNESS: Mr. Hodges was seen in my office this morning after having been treated with oral antibiotics at home for the last 2 weeks for a right-sided emphysematous pyelonephritis and cystitis. During the past 2 weeks, he has lost 14 pounds and developed some increased weakness and confusion, as well as cloudy urine. MEDICATIONS: He has been receiving Augmentin 875 p.o. every 12 hours and Cipro 500 p.o. every 12 hours for the last 14 days. At this point, he has been started on cefepime 1 g IV every 12 hours as a renally modified dose and Zyvox 600 mg IV every 12 hours. PHYSICAL EXAMINATION: Vital Signs: Temperature is 98.4 degrees, pulse rate 77, respiratory rate 16, blood pressure 119/62, O2 saturation is 96% on room air. General: This is a chronically ill- appearing elderly gentleman. He is lying in the bed, mildly confused; currently in no acute distress. HEENT: Atraumatic, normocephalic. Oral mucous membranes are pink and moist. Conjunctivae are pink. Neck: Supple. Trachea is midline. Cardiovascular: Heart rate is regular. Respiratory: Lung sounds are clear to auscultation bilaterally. No work of breathing is noted. Abdomen: Soft, round and nontender. Bowel sounds are active. Neurologic: He is awake, alert, and mildly confused. Able to move all extremities in the bed with generalized weakness noted. DIAGNOSTIC STUDIES: Today his white count is 12.72 hemoglobin 11.8 platelet count 338,000. Creatinine is 2, GFR 32, total bilirubin 0.74, AST 10, ALT 8, alkaline phosphatase 79. C-reactive protein, 40.8. His urinalysis shows orange turbid urine with moderate blood, WBCs too numerous to count; negative for urine bacteria. Blood and urine cultures are pending. No imaging reports are done at this point. ASSESSMENT AND PLAN: Mr. Hodges has been admitted with a possible urinary tract infection with weakness, weight loss, and confusion. It is possible that the Cipro he has been taking at home has contributed to the confusion. For now, we will continue cefepime and Zyvox as ordered and await results of the urine culture. He does have leukocytosis. We will go ahead and check a chest x-ray. He only has one kidney, and his renal function has gone down somewhat since his last hospitalization. We will check a renal ultrasound at this point. Dr. Haynes is also going to be seeing the patient. These plans have been discussed with and recommended by Dr. Fontenot. COMORBIDITIES: For Mr. Hodges include that he is elderly with weakness, confusion, and history of left nephrectomy. Dictated by STEVEN Fuchs for Siva Fontenot MD cc: MD Khang Roberts MD [facility]
--- NOTE | 2019-01-06 15:04 | Diag Imaging Result Doc PS360 ---
EXAM: US RENAL 2 (RETROPER) COMPLETE 01/06/2019 HISTORY: renal insufficiency TECHNIQUE: Renal ultrasound COMMENT: The urinary bladder is evacuated and there is a Vega catheter. The right kidney is 13.6 x 6.3 x 7.3 cm with a 17 mm cyst and what appears be a 9 mm high intensity echo anteriorly, most likely representing a stone. The left kidney is surgically absent. Compared to 12/17/2018, the hydronephrosis which was present previously is no longer present. IMPRESSION: Improved hydronephrosis. Right nephrolithiasis. Electronically signed by Woodrow Fong 01/06/2019 3:01 PM
[2019-01-06] MEDS: GLUCOPHAGE PO SCH (16:45)
[2019-01-06] MEDS: FLOMAX PO SCH (21:57)
[2019-01-07] MEDS: ZYVOX 600 MG/D5W 600 MG/300 ML IVPB IV SCH ×3 (00:24→23:17)
[2019-01-07] MEDS: MAXIPIME 1 GM in NS 50 ML IV SCH ×2 (03:13→13:42)
[2019-01-07 06:47] LABS: HEMATOCRIT 33.7 % (42.0-52.0); HEMOGLOBIN 10.7 g/dL (14.0-18.0); MCV 81.8 FL (81-99); RBC 4.12 XMIL (4.7-6.1); WBC 8.86 X1000 (4.8-10.8)
[2019-01-07 06:48] LABS: BASO# 0.03 X1000 (0.0-0.2); BASO% 0.3 % (0.0-0.8); EOS# 0.84 X1000 (0.0-0.7); EOS% 9.5 % (0.0-10.0); IMM GRAN# 0.03 X1000 (0.0-0.04); IMM GRAN% 0.3 % (0.0-0.5); LYMPH# 1.18 X1000 (1.2-3.4); LYMPH% 13.3 % (20.5-51.1); MCHC 31.8 g/dL (33-37); MONO# 0.87 X1000 (0.11-0.59); MONO% 9.8 % (1.7-9.3); MPV 10.5 FL (7.4-10.4); NEUT# 5.91 X1000 (1.4-6.5); NEUT% 66.8 % (42.2-75.2); PLT 303 X1000 (130-400); RDW 15.2 % (11.5-14.5)
[2019-01-07 07:03] LABS: CALCIUM 9.1 mg/dL (8.8-10.2); CREATININE 1.8 mg/dL (0.7-1.2); POTASSIUM 4.5 mmol/L (3.5-5.1)
[2019-01-07] MEDS: PROSCAR PO SCH (08:26)
[2019-01-07] MEDS: ZYLOPRIM PO SCH (08:26)
[2019-01-07] MEDS: FLOMAX PO SCH ×2 (08:26→23:17)
[2019-01-07] MEDS: GLUCOPHAGE PO SCH ×2 (08:26→16:47)
--- NOTE | 2019-01-07 08:59 | CONSULTATION ---
DATE OF CONSULTATION: 01/07/2019 ATTENDING/REFERRING PHYSICIAN: Dr. Paz. 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 He was admitted to the hospital several weeks ago with pyuria, hematuria and symptoms of a urinary infection. His urine and blood cultures did not reveal any bacteria or yeast. He underwent cystoscopic exam, but there was significant bleeding and pyuria. A right retrograde was attempted but not successful. He underwent placement of a percutaneous tube in the right kidney and then antegrade placement of a double-J stent. The right percutaneous tube was removed. He was discharged with his Vega catheter and seemed to be doing well. He was readmitted yesterday with again, significant pyuria and mental status changes but no hematuria. Please see the dictated history and physical note of 12/13/2018. PAST MEDICAL HISTORY, SURGICAL HISTORY, AND SOCIAL HISTORY: All are as noted in the history and physical of 12/13/2018. REVIEW OF SYSTEMS: No change. PHYSICAL EXAMINATION: General: A mildly obese, age apparent, normally developed, white male, who is cooperative and states he is feeling much better. HEENT: Normal for age. Lungs: Clear. Cardiovascular: Regular rate and rhythm. Abdomen: Mildly obese, soft, nontender. No hepatosplenomegaly or masses. Normal bowel sounds. No suprapubic area tenderness. Genitourinary: Uncircumcised male. Both testes down. Scrotal exam is normal. There are no inguinal hernias. Vega catheter in place draining well. Rectal: Deferred and is noted on the operative note of December 15. Extremities: No clubbing, cyanosis, or edema. Neuro: No focal deficits. LABORATORY EVALUATION: He has a white count of 8.86, hemoglobin 10.7, hematocrit of 33.7, platelets are 300,000. His serum sodium is 130, potassium 4.5, chloride 97, bicarb 23, BUN 22, creatinine 1.8 which is his baseline. Urine and blood cultures are pending. IMAGING: A renal ultrasound did not reveal any hydronephrosis on the right side. IMPRESSION: 1. Pyuria with history of mental status changes that appear to be improved. 2. 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 3. Right ureteral obstruction with indwelling right double-J stent. RECOMMENDATIONS: 1. Check cultures when available. 2. KUB to verify stent position. Thank you for this consultation. cc: MD Khang Page MD
--- NOTE | 2019-01-07 09:11 | PROGRESS NOTE ---
DATE: 01/07/2019 SUBJECTIVE: Mr. Hodges does feel better than yesterday. His urine appears to have cleared. Creatinine is down to 1.8. Ultrasound did not show any obstruction. We will look at a CT scan to look at his stent placement. OBJECTIVE: Vital Signs: Temperature 97.3 degrees, pulse 69, respirations 18, blood pressure 130/79. Eyes: Pupils are equal and round. Lungs: Lungs are clear in all lung lund. Cardiovascular exam: Regular rhythm and rate without murmur or S3. Abdomen: Soft. Skin: Warm and dry. : Urine output is 1700 mL. Blood sugar 207, 163. ASSESSMENT AND PLAN: 1. He Was treated with oral antibiotics for 2 weeks for right-sided emphysematous pyelonephritis and cystitis. During the last 2 weeks, he lost 14 pounds and developed increased weakness and confusion. Urine was cloudy, so I put him back in and have recultured the urine which are pending. We have him on cefepime and Zyvox for now. He does clinically appear to be doing better. Dr. Niall Haynes and Dr. Siva Fontenot are following the case, and I think the plan is to check a CT and get a KUB and see if his stent placement looks good. 2. Diabetes mellitus type 2. Continue pattern sugars, sliding scale. 3. History of cerebrovascular accident. 4. History of gout. 5. History of osteoarthritis. 6. Status post left nephrectomy for nonfunctional kidney due to staghorn calculus infection. LABORATORY DATA: Review of lab from this morning: White count down 8860, hematocrit 33, platelet count 303,000. Chemistry: Sodium 130, potassium 4.5, chloride 97. BUN 22, creatinine 1.8 which I believe is his baseline. Blood sugars have been 169, 162, 163, so they look good. cc: Khang Paz MD
--- NOTE | 2019-01-07 09:38 | Diag Imaging Result Doc PS360 ---
EXAM: KUB ABDOMEN 01/07/2019 HISTORY: stent position TECHNIQUE: KUB COMMENT: There is a right ureteral stent in place in the bladder and presumably in the renal pelvis on the right. There are multiple surgical clips over the left iliac fossa and medial abdomen. There is extensive calcification in the splenic artery. There is stool throughout the colon without evidence of dilatation. There is no evidence of small bowel dilatation or gastric distention. IMPRESSION: Right ureteral stent in stable position. Electronically signed by Woodrow Fong 01/07/2019 9:36 AM
[2019-01-07] MEDS: NS 1,000 ML IV SCH (10:24)
--- NOTE | 2019-01-07 15:01 | INFECTIOUS DISEASE PROGRESS NO ---
DATE: 01/07/2019 PRESENT ILLNESS: The patient was being treated as an outpatient for emphysematous pyelonephritis and cystitis. He was on Augmentin and ciprofloxacin. He became confused and lost weight, I think most likely the patient was having an adverse reaction to ciprofloxacin. Since coming in the hospital, he appears to have improved quite a bit since we stopped Cipro and put the patient on other antibiotics. MEDICATIONS: Currently, the patient is receiving a combination of Zyvox and cefepime. This is day 1 of treatment with both of those agents. PHYSICAL EXAMINATION: Vital Signs: Temperature is 97.3 degrees, pulse 69, respirations 18, blood pressure 130/79. General: This is a chronically ill-appearing, elderly male. He is much more alert now and is able to carry on a coherent conversation. He can move his extremities. He seems to be oriented to time, place, and person. Head/eyes/ears/nose/throat: He can hear my spoken words and see near objects. He does not have any white patches on his tongue. Neck: No meningismus. Lungs: Clear to auscultation. Cardiovascular: Heart rate is regular. Abdomen and flanks: Soft and nontender. Neurologic: The patient is awake. He can move his extremities. There is no tremor. He is oriented as to time, place, and person. LABORATORY AND RADIOLOGIC STUDIES: The patient's CBC shows a white count of 8860, hemoglobin 10.7, and platelet count 303,000. Creatinine is 1.8. GFR is 37. Blood cultures are pending. Urinalysis showed white cells but no bacteria or yeast. Renal ultrasound shows improvement in the patient's hydronephrosis. The patient also has nephrolithiasis in the right kidney. The patient's left kidney is surgically absent. Chest x-ray shows no acute disease. ASSESSMENT AND PLAN: The patient is being treated now for hydronephrosis and nephrolithiasis. For now, I plan to continue the current antibiotics of cefepime and Zyvox. COMORBIDITIES: The patient is elderly. He sometimes does get confused. He has a history of a left nephrectomy. cc: MD Khang Roberts MD
[2019-01-08] MEDS: MAXIPIME 1 GM in NS 50 ML IV SCH ×2 (02:22→16:27)
[2019-01-08] MEDS: NS 1,000 ML IV SCH ×3 (06:37→22:23)
--- NOTE | 2019-01-08 08:16 | PROGRESS NOTE ---
DATE: 01/08/2019 SUBJECTIVE: Mr. Hodges is feeling a whole lot better. He did get some sleep last night. He says he is eating a little bit and feels like his strength is better. OBJECTIVE: Vital signs: Temperature 97.4 degrees, pulse 77, respirations 16, blood pressure 127/50. HEENT: Pupils are equal and round. Lungs: Clear in all lung lund. Cardiovascular: Regular rhythm and rate without murmur or S3. Abdomen: Soft. Skin is warm and dry. Extremities: He says his heels are a little sore. We will see if we can get some heel pads on him. I do not see any breakdown of the skin. Genitourinary: Urine output was 2800 to 2900 mL. ASSESSMENT AND PLAN: 1. Patient was treated as an outpatient for emphysematous pyelonephritis and cystitis. Was on Augmentin and ciprofloxacin. He was losing weight and confused. His urine looked milky and thick. He is on Zyvox and cefepime. No growth from cultures thus far, either blood cultures or urine culture. 2. Diabetes mellitus type 2. We will continue to watch pattern sugars. 3. History of cerebrovascular accident. 4. History of gout. 5. History of osteoarthritis. 6. Status post nephrectomy for nonfunctional left kidney from staghorn calculus a couple years ago. SUMMARY: He is doing better. We still do not have a culture or an identification of the organism, but we will keep him on cefepime and Zyvox. It looks like his stent is in good placement. Does not look like he has any obstruction on that right ureter and so I am going to add physical therapy to his regimen. His white count has come down from 12,000 to 8000. Electrolytes look good and I think his creatinine is down to baseline. He does have chronic kidney disease with a lone kidney. Creatinine is 1.8 and I think that is probably his baseline. We will check electrolytes again probably on Thursday. Blood sugars 158, 187, 124, 132. I am going to put some heel pads on him and begin physical therapy. cc: Khang Paz MD
[2019-01-08] MEDS: GLUCOPHAGE PO SCH ×2 (09:08→16:28)
[2019-01-08] MEDS: ZYLOPRIM PO SCH (09:08)
[2019-01-08] MEDS: PROSCAR PO SCH (09:08)
[2019-01-08] MEDS: FLOMAX PO SCH ×2 (09:08→22:23)
[2019-01-08] MEDS: ZYVOX 600 MG/D5W 600 MG/300 ML IVPB IV SCH ×2 (16:27→22:22)
[2019-01-09] MEDS: ZYVOX 600 MG/D5W 600 MG/300 ML IVPB IV SCH ×3 (01:24→23:01)
[2019-01-09] MEDS: MAXIPIME 1 GM in NS 50 ML IV SCH ×2 (02:47→16:53)
[2019-01-09] MEDS: NS 1,000 ML IV SCH ×2 (04:54→16:46)
[2019-01-09 07:22] LABS: CALCIUM 8.8 mg/dL (8.8-10.2); CREATININE 1.3 mg/dL (0.7-1.2); MAGNESIUM 1.8 mg/dL (1.5-2.7); POTASSIUM 3.9 mmol/L (3.5-5.1)
--- NOTE | 2019-01-09 08:38 | PROGRESS NOTE ---
DATE: 01/09/2019 SUBJECTIVE: Mr. Hodges is feeling better. He was sleeping, was easy to arouse. He says he feels a lot better. OBJECTIVE: He remains afebrile, temperature 97.4 degrees, pulse 58, respirations 16, blood pressure 124/60. Pupils are equal and round. Lungs are clear in all lung lund. Cardiovascular Examination: Regular rhythm and rate without murmur or S3. Abdomen is soft. Skin is warm and dry. Urine output 3000 mL so good urine output. Blood sugars 132, 163, 148. ASSESSMENT AND PLAN: 1. The patient has been treated as an outpatient for emphysematous pyelonephritis and cystitis, was on Augmentin and ciprofloxacin and was losing weight, feeling worse, and seemed like an infection was active. Urine has cleared. He is on Zyvox and cefepime. Thus far, have not had any reviewing cultures so treating empirically. The 27th was the first day of both these agents. 2. Diabetes mellitus type 2. Sugar is under fairly good control. 3. Osteoarthritis. Mainly his knees give him trouble. 4. History of cerebrovascular accident. 5. History of gout. 6. He has a single solitary kidney on the right and he has chronic renal insufficiency. His creatinine appears to be baseline and actually, we have had improvement in creatinine, renal function which is encouraging. It is down to 1.3 so an encouraging sign. 7. Review of his lab today, sodium 134, potassium 3.9, chloride 100, BUN 13, creatinine 1.3. White count has come down from the 28th to 8000 so continue present orders. We have physical therapy and occupational therapy ordered. cc: Khagn Paz MD
[2019-01-09] MEDS: ZYLOPRIM PO SCH (09:16)
[2019-01-09] MEDS: PROSCAR PO SCH (09:16)
[2019-01-09] MEDS: GLUCOPHAGE PO SCH ×2 (09:16→16:52)
[2019-01-09] MEDS: FLOMAX PO SCH ×2 (09:16→23:01)
[2019-01-10] MEDS: MAXIPIME 1 GM in NS 50 ML IV SCH ×2 (02:30→14:11)
[2019-01-10] MEDS: FLOMAX PO SCH ×2 (09:00→22:05)
[2019-01-10] MEDS: PROSCAR PO SCH (09:00)
[2019-01-10] MEDS: ZYLOPRIM PO SCH (09:00)
[2019-01-10] MEDS: GLUCOPHAGE PO SCH ×2 (09:00→17:11)
--- NOTE | 2019-01-10 09:27 | PROGRESS NOTE ---
DATE: 01/10/2019 SUBJECTIVE: Mr. Hodges had a good night. He was sleeping sound, and says he feels much better. They have been walking with physical therapy. Urine appears clear. OBJECTIVE: Vital Signs: Temperature 97.7 degrees, pulse 53, respirations 24 and blood pressure 148/48. HEENT: Pupils are equal and round. Lungs: Clear in all lung lund. Cardiovascular: Regular rhythm and rate without murmur or S3. Abdomen: Soft. Skin: Warm and dry. Urine output was 2500 mL. ASSESSMENT AND PLAN: 1. The patient was treated as an outpatient for emphysematous pyelonephritis and cystitis, and was on Augmentin and ciprofloxacin. He was losing weight, and feeling worse. Urine looked infected. He has been on Zyvox and cefepime, and it seems to be doing very well. We still do not have an organism identified. Urine cultures and blood cultures from the with no growth. I will discuss with Dr. Fontenot that I suspect we will want to treat him with a similar regimen for a couple more weeks and make sure it is cleared. 2. Diabetes mellitus type 2. Sugars under good control. 3. Osteoarthritis, mainly affecting his knees. 4. Cerebrovascular accident. 5. History of gout. 6. He has a solitary kidney on the right. Chronic renal insufficiency encouraging. His creatinine has come down to 1.3, so renal function appears to have improved. Continue physical therapy. Continue present regimen, and discuss what our discharge plans are. Right now, he is getting normal saline at 75 mL an hour. We will continue cefepime 1 g q.12h and linezolid 600 mg IV q.12. cc: Khang Paz MD
[2019-01-10] MEDS: NS 1,000 ML IV SCH ×2 (09:58→17:21)
[2019-01-10] MEDS ORDERED: HALDOL IV ONE (10:41)
[2019-01-10] MEDS: ZYVOX 600 MG/D5W 600 MG/300 ML IVPB IV SCH (11:04)
--- NOTE | 2019-01-10 15:36 | INFECTIOUS DISEASE PROGRESS NO ---
DATE: 01/10/2019 PRESENT ILLNESS: The patient was being treated for emphysematous pyelonephritis and cystitis. The patient had an altered mental status, most likely secondary to taking ciprofloxacin. MEDICATION: The patient has been receiving treatment in the hospital with Zyvox and cefepime and he is improving. PHYSICAL EXAMINATION: Vital Signs: Temperature is 98.5 degrees, pulse 103, respirations 20, blood pressure 125/96. General: This is an ill-appearing, elderly male. He looks so much better than he did when he came in. Head, eyes, ears, nose, throat: He can hear my spoken words and see near objects. He does not have any white coating on his tongue. Neck: No meningismus. Lungs: Clear to auscultation. Cardiovascular: Heart rate is regular. Abdomen and flanks: Soft and nontender. Neurologic: The patient was sleeping but he was fully awakened. He carried on a conversation with me. He can move his extremities. There is no tremor. LAB AND RADIOLOGY: Renal ultrasound showed the urinary bladder is evacuated. It also showed that the right kidney hydronephrosis is no longer present. The patient's blood and urine cultures are negative. Chest x-ray is clear. There is no new lab for today. ASSESSMENT AND PLAN: Patient is being treated for his emphysematous kidney and bladder infection. The plan now is to discharge the patient tomorrow. I have electronically sent a prescription for Ceftin 500 mg p.o. every 12 hours for 2 weeks and I have requested that the patient have an appointment in my office in 2 weeks. At which time, he will have a physical exam and we will repeat the renal ultrasound and if everything still looks good and if the patient neurologically is intact, we will stop his antibiotics. COMORBIDITIES: He is elderly and he has had a left nephrectomy. cc: MD Khang Roberts MD MTDLinda
[2019-01-10] MEDS ORDERED: HALDOL IV PRN (23:22)
[2019-01-11] MEDS: ZYVOX 600 MG/D5W 600 MG/300 ML IVPB IV SCH ×2 (00:06→12:20)
[2019-01-11] MEDS: NS 1,000 ML IV SCH ×2 (03:26→19:50)
[2019-01-11] MEDS: MAXIPIME 1 GM in NS 50 ML IV SCH (03:26)
[2019-01-11 06:11] LABS: BASO# 0.01 X1000 (0.0-0.2); BASO% 0.2 % (0.0-0.8); EOS% 11.1 % (0.0-10.0); HEMATOCRIT 34.5 % (42.0-52.0); HEMOGLOBIN 10.8 g/dL (14.0-18.0); LYMPH# 1.05 X1000 (1.2-3.4); LYMPH% 16.7 % (20.5-51.1); MCH 26.2 PG (27-31); MCHC 31.3 g/dL (33-37); MCV 83.7 FL (81-99); MONO# 0.56 X1000 (0.11-0.59); MONO% 8.9 % (1.7-9.3); MPV 10.1 FL (7.4-10.4); NEUT# 3.97 X1000 (1.4-6.5); NEUT% 63.1 % (42.2-75.2); PLT 231 X1000 (130-400); RBC 4.12 XMIL (4.7-6.1); RDW 15.2 % (11.5-14.5); WBC 6.29 X1000 (4.8-10.8)
[2019-01-11 06:27] LABS: CALCIUM 8.5 mg/dL (8.8-10.2); CREATININE 1.3 mg/dL (0.7-1.2)
[2019-01-11] MEDS: FLOMAX PO SCH ×2 (08:38→22:46)
[2019-01-11] MEDS: ZYLOPRIM PO SCH (08:38)
[2019-01-11] MEDS: PROSCAR PO SCH (08:38)
[2019-01-11] MEDS: GLUCOPHAGE PO SCH (08:38)
--- NOTE | 2019-01-11 13:32 | PROGRESS NOTE ---
DATE: 01/11/2019 SUBJECTIVE: Mr. Hodges has remained afebrile. He has had episodes of confusion. He is not oriented. He does not know where he is, he thought he was in [place]. He does not he is in the hospital. He does not know what month or year it is. He says he is eating pretty well. OBJECTIVE: Vital Signs: Temperature 97.4 degrees, pulse is 55, respirations 20, blood pressure 143/58. HEENT: Pupils are equal and round. Lungs: Clear in all lung lund. Cardiovascular: Regular rhythm and rate without murmur or S3. Abdomen: Soft. Skin: Warm and dry. URINE OUTPUT: 4900 mL. LABORATORY DATA: Blood sugars appear well controlled. ASSESSMENT AND PLAN: 1. He is treated as an outpatient for emphysematous pyelonephritis with cystitis. He was on Augmentin and ciprofloxacin but he seemed to be losing weight and feeling worse and so he came into the hospital. We still have not identified an organism, but he has been responding to cefepime and Zyvox. So, the plan is to put him on p.o. Ceftin and we will do Ceftin 500 mg q.12 for 2 weeks and single agent and follow back with Dr. Fontenot. 2. Delirium and confusion is still an issue, has lucid intervals, but he is really not on any medication to promote that. He is not taking any pain medicine. I am going to go ahead and stop his metformin to see if that makes any difference for him and I think I will stop the Proscar as well. He is on Zyloprim 300 mg a day. 3. Gout. Continue physical therapy, I am hoping he can go home soon. cc: Khang Paz MD
--- NOTE | 2019-01-11 14:08 | INFECTIOUS DISEASE PROGRESS NO ---
DATE: 01/11/2019 PRESENT ILLNESS: The patient was being treated for emphysematous pyelonephritis and cystitis. Based on the studies we have done during this admission, it appears that those 2 conditions have cleared. The patient has times when he is combative and confused. Today his urine looks very cloudy. MEDICATION: This is the 5th day of being on cefepime and Zyvox. PHYSICAL EXAMINATION: Vital Signs: Temperature is 97.4 degrees, pulse 55, respirations 20, blood pressure 143/58. General: The patient has been sleeping all morning. I think he was given some sedation but now he is arousable and he was talking with me and said he wanted to eat. Head/eyes/ears/nose/throat: No drainage noted from the nose or ears. He does not have any white patches in his mouth. Neck: The patient does not have any neck pain. If he moves his neck or head. Lungs: Clear to auscultation. Cardiovascular: Heart rate is regular. Abdomen: Soft and nontender. Neurologic: As mentioned above, the patient is awake now. He is talking and he is able to move his extremities. LAB AND X-RAY: CBC shows a white count of 6290, hemoglobin 10.8, and platelet count is 231,000. Creatinine is 1.3. GFR is 53. The patient's blood and urine cultures from the 06 of January are sterile. ASSESSMENT AND PLAN: The patient was being treated for emphysematous kidney and bladder infection. It appears that that has cleared. However, the patient's urine has turned cloudy. The patient has intermittently altered mental status, the exact reason why is uncertain to me. My plan now is to stop cefepime and Zyvox and to repeat the patient's urine culture. COMORBIDITIES: The patient is elderly and he has had a left nephrectomy. cc: MD Khang Roberts MD
--- NOTE | 2019-01-12 10:35 | PROGRESS NOTE ---
DATE: 01/12/2019 SUBJECTIVE: Mr. Hodges was sleeping, easy to arouse. He thought he was in [place], did not know the year. Of course, he just woke up. I think he is better, but still having confusion, and he is really not on any suspicious medications right now. OBJECTIVE: Vital Signs: He remains afebrile, temperature 98 degrees, pulse 62, respirations 16, blood pressure 160/55. HEENT: Pupils are equal and round. Lungs: Clear in all lung lund. Cardiovascular: Regular rhythm and rate without murmur or S3. Abdomen: Soft. Skin: Warm and dry. Urine output was 3200 mL. Blood sugar is 117, 198, 124. ASSESSMENT AND PLAN: Treated for emphysematous pyelonephritis and cystitis. These conditions have cleared. He has been combative and confused. Hopefully, this is a little bit better. Continue his IV antibiotics. I have adjusted and taken off the other additional medications. On review of his lab, hematocrit 34, hemoglobin 10, white blood cell count 6290, platelet count 231,000. Electrolytes were okay. I am going to check his B12. His thyroid looked good. I checked his B12 earlier. He is low on folate, so we will make sure he gets some folate. cc: Khang Paz MD
[2019-01-12] MEDS: CENTRUM SILVER PO SCH (11:20)
[2019-01-12] MEDS: ZYLOPRIM PO SCH (11:21)
[2019-01-12] MEDS: FOLIC ACID PO SCH ×2 (11:21→21:19)
[2019-01-12] MEDS: FLOMAX PO SCH ×2 (11:21→21:19)
[2019-01-12] MEDS: NS 1,000 ML IV SCH (11:24)
--- NOTE | 2019-01-12 11:33 | INFECTIOUS DISEASE PROGRESS NO ---
DATE: 01/12/2019 PRESENT ILLNESS: The patient has completed treatment for emphysematous pyelonephritis and cystitis. He has, at times, an altered mental status, and yesterday his urine began to look cloudy. MEDICATIONS: Currently, the patient is not on any antibiotics. PHYSICAL EXAMINATION: Vital Signs: Temperature is 98 degrees, pulse 60, respirations 16, blood pressure 150/55. General: This is a somewhat ill-appearing elderly male. Today he is fully alert and is under no acute distress. Head, eyes, ears, nose, and throat: He can hear my spoken words and see near objects. No drainage noted from the nose or ears. Neck: No meningismus. Lungs: Clear to auscultation. Cardiovascular: Regular heart rate. Abdomen: Soft and nontender. Neurologic: The patient is alert and smiling. He talks in a coherent fashion. He can move his extremities. LAB AND X-RAY: There is no new lab today. The urine culture from yesterday is still pending. There is no new radiographic study either today. ASSESSMENT AND PLAN: The patient appears to be over his urinary tract infections. I am waiting for the repeat urine culture. Right now the patient is alert and it looks like he is feeling better. COMORBIDITIES: The patient is elderly and he has had a left nephrectomy. cc: MD Khang Roberts MD MTDD
[2019-01-13] MEDS: NS 1,000 ML IV SCH ×2 (00:10→16:13)
[2019-01-13] MEDS ORDERED: CALMOSEPTINE OINTMENT TOP PRN (01:05)
[2019-01-13 06:48] LABS: BASO# 0.02 X1000 (0.0-0.2); BASO% 0.3 % (0.0-0.8); EOS# 0.77 X1000 (0.0-0.7); EOS% 11.6 % (0.0-10.0); HEMATOCRIT 32.9 % (42.0-52.0); HEMOGLOBIN 10.3 g/dL (14.0-18.0); LYMPH# 1.57 X1000 (1.2-3.4); LYMPH% 23.7 % (20.5-51.1); MCH 26.2 PG (27-31); MCHC 31.3 g/dL (33-37); MCV 83.7 FL (81-99); MONO# 0.65 X1000 (0.11-0.59); MONO% 9.8 % (1.7-9.3); MPV 10.1 FL (7.4-10.4); NEUT# 3.62 X1000 (1.4-6.5); NEUT% 54.6 % (42.2-75.2); PLT 201 X1000 (130-400); RBC 3.93 XMIL (4.7-6.1); RDW 15.3 % (11.5-14.5); WBC 6.63 X1000 (4.8-10.8)
[2019-01-13 07:15] LABS: CALCIUM 8.7 mg/dL (8.8-10.2); CREATININE 1.4 mg/dL (0.7-1.2)
--- NOTE | 2019-01-13 09:20 | PROGRESS NOTE ---
DATE: 01/13/2019 SUBJECTIVE: He was awake, comfortable. No complaints. He did not remember where he was. He did not remember the month or the year, so I reminded him that he is at [facility], the month was January, and it is 01/13/2019, but he does look like he is feeling much better. OBJECTIVE: Vital Signs: Temperature 97.3 degrees, pulse 74, respirations 24, blood pressure 134/55. HEENT: Pupils are equal and round. Lungs: Clear in all lung lund. Cardiovascular: Regular rhythm and rate without murmur or S3. Abdomen: Soft. Skin: Warm and dry. Urine output 2800 mL. ASSESSMENT AND PLAN: 1. Treatment for emphysematous pyelonephritis and cystitis. He has been very lethargic. I think he has been very wore out. He is disoriented and lethargic, but this seems to be improving. Currently, the patient is not on any antibiotics. 2. Diabetes mellitus type 2. Continue to follow pattern sugars. 3. General weakness and deconditioning. Continue physical therapy. 4. Osteoarthritis and significant arthritis of his knees. He is getting normal saline at 75 mL an hour. He is off antibiotics. He is on Flomax 0.4 mg twice daily, allopurinol 300 mg daily, and folic acid 1 mg twice daily. I think he can go home when mental status continues to improve and his is ready. Continue present measures. cc: Khang Paz MD
[2019-01-13] MEDS: CENTRUM SILVER PO SCH (09:28)
[2019-01-13] MEDS: FOLIC ACID PO SCH ×2 (09:28→23:02)
[2019-01-13] MEDS: FLOMAX PO SCH ×2 (09:28→23:02)
[2019-01-13] MEDS: ZYLOPRIM PO SCH (09:28)
--- NOTE | 2019-01-13 12:05 | INFECTIOUS DISEASE PROGRESS NO ---
DATE: 01/13/2019 PRESENT ILLNESS: The patient has completed treatment for his emphysematous pyelonephritis and cystitis. His urine was looking a little bit cloudy yesterday, but the repeat urine culture is sterile. MEDICATIONS: The patient is not on any antibiotics. PHYSICAL EXAMINATION: Vital Signs: Temperature is 97.3 degrees, pulse 74, respirations 24, blood pressure 134/55. General: This is a somewhat ill-appearing, elderly male. He is fully alert today and carried on a coherent conversation. HEENT: He can hear my spoken words and see near objects. He does not have any white patches in his mouth. Neck: He did not have any pain in his neck when he moved his neck or head. Lungs: Clear to auscultation. Cardiovascular: Regular heart rate. Abdomen and Flanks: Soft and nontender. Neurologic: As mentioned above, the patient is alert and he carries on a coherent conversation. He can move his extremities. LABORATORY DATA: The patient's repeat urine culture was negative. His blood cultures are negative. His creatinine is 1.4. GFR is 49. CBC shows a white count of 6630, hemoglobin 10.3, and platelet count 201,000. ASSESSMENT AND PLAN: At this time, I do not think the patient has an active infection. I do not think he requires any further antibiotics. I am signing off his case now, but I am available to see him on an as needed basis. COMORBIDITIES: The patient is elderly and he has had a left nephrectomy. cc: MD Khang Roberts MD
[2019-01-14] MEDS: NS 1,000 ML IV SCH ×2 (06:32→07:04)
[2019-01-14] MEDS: FLOMAX PO SCH (09:24)
[2019-01-14] MEDS: CENTRUM SILVER PO SCH (09:25)
[2019-01-14] MEDS: ZYLOPRIM PO SCH (09:25)
[2019-01-14] MEDS: FOLIC ACID PO SCH (09:25)
--- NOTE | 2019-01-14 11:14 | DISCHARGE SUMMARY ---
ADMISSION DATE: 01/06/2019 DISCHARGE DATE: 01/14/2019 HISTORY AND HOSPITAL COURSE: Presented. He had been treated as an outpatient for pyelonephritis and cystitis and he was on Augmentin, seemed to be losing weight and sediment in his urine, so put him back in the hospital, put him on IV antibiotics and he seemed to improve fairly quickly. He had some delirium and confusion that seemed to linger on. I did back down on lot of his medications, but we were able stop his antibiotics and he appeared to have no further infection, so I will let him go home. Would like to get home health, encourage him to work on his ambulation and strength. DISCHARGE MEDICATIONS: Going home, he will be on allopurinol 300 mg a day, folic acid 1 mg b.i.d., multivitamin 1 a day, Flomax 0.4 mg b.i.d. and Centrum Silver 1 a day. FOLLOWUP: He will follow up with Dr. Niall Haynes for Urology. He has a Vega catheter. He has only 1 kidney on the right side, left kidney resected I think 2 years ago. cc: Khang Paz MD
[2019-01-14 11:52] VITALS: BP 144/67
== END 2019-01-14 12:34 | disposition home health service (06) | DRG 690 ==
LOC: DIRADM → OBSVTOIN 09:27 → 4N 09:33
PROVIDERS: ADMIT Emergency Medicine; ATTEND Emergency Medicine
CPT/HCPCS: 71010; 71045; 74000; 74018; 76770; 80048; 80053; 81001; 82607; 82746; 82948; 83036; 83735; 84134; 84439; 84443; 85025; 86140; 87040; 87088; 97110; 97161; 97165; 97530; A9270; J0692; J1630; J2020; J7030; S0138; XXXXX